=== PATIENT | female | born 1995 | race Caucasian/White ===

== ENCOUNTER 2021-10-10 08:00 | Outpatient (CLI) | payer BC | END 2021-10-10 23:59 | disposition home or self-care (01) | LOC: LAB.S 08:00 | PROVIDERS: ATTEND Emergency Medicine | DX: Z33.1 Pregnant state, incidental (principal) | CPT/HCPCS: 36415; 84144; 86769 ==

== ENCOUNTER 2021-10-12 16:03 | Outpatient (CLI) | payer BC | END 2021-10-12 16:04 | disposition home or self-care (01) | LOC: LAB.S 16:03 | PROVIDERS: ATTEND Emergency Medicine | DX: Z33.1 Pregnant state, incidental (principal) | CPT/HCPCS: 36415; 84144; 84702 ==

== ENCOUNTER 2021-10-24 11:37 | Outpatient (CLI) | payer BC | END 2021-10-24 11:38 | disposition home or self-care (01) | LOC: LAB.S 11:37 | PROVIDERS: ATTEND Emergency Medicine | DX: Z33.1 Pregnant state, incidental (principal) | CPT/HCPCS: 36415; 84144 ==

== ENCOUNTER 2021-10-30 08:00 | Outpatient (CLI) | payer BC | END 2021-10-30 23:59 | disposition home or self-care (01) | LOC: LAB.S 08:00 | PROVIDERS: ATTEND Emergency Medicine | DX: Z33.1 Pregnant state, incidental (principal) | CPT/HCPCS: 84144 ==

== ENCOUNTER 2021-11-09 08:00 | Outpatient (CLI) | payer BC ==
[2021-11-09 15:23] LABS: ALBUMIN 3.9 g/dL (3.2-5.5); ALBUMIN/GLOBULIN RATIO 1.2 (1.0-2.2); BILIRUBIN,TOTAL 0.3 mg/dL (0.2-1.0); CALCIUM 9.2 mg/dL (8.5-10.3); CREATININE 0.5 mg/dL (0.4-1.0); POTASSIUM 3.4 mmol/L (3.5-5.0); TOTAL PROTEIN 7.1 g/dL (6.7-8.2)
== END 2021-11-09 23:59 | disposition home or self-care (01) ==
LOC: LAB.S 08:00
PROVIDERS: ATTEND Emergency Medicine
DX: Z33.1 Pregnant state, incidental (principal)
CPT/HCPCS: 36415; 80053; 84144

== ENCOUNTER 2021-11-14 08:00 | Outpatient (CLI) | payer BC | END 2021-11-14 23:59 | LOC: LAB.S 08:00 | PROVIDERS: ATTEND Emergency Medicine | DX: Z33.1 Pregnant state, incidental (principal) | CPT/HCPCS: 36415; 84144 ==

== ENCOUNTER 2021-11-20 08:00 | Outpatient (CLI) | payer BC | END 2021-11-20 23:59 | disposition home or self-care (01) | LOC: LAB.S 08:00 | PROVIDERS: ATTEND Emergency Medicine | DX: Z33.1 Pregnant state, incidental (principal) | CPT/HCPCS: 84144 ==

== ENCOUNTER 2021-11-24 08:00 | Outpatient (CLI) | payer BC | END 2021-11-24 23:59 | LOC: LAB.S 08:00 | PROVIDERS: ATTEND Emergency Medicine | DX: Z33.1 Pregnant state, incidental (principal) | CPT/HCPCS: 84144 ==